=== PATIENT | female | born 1950 | race Caucasian/White ===

== ENCOUNTER 2016-09-08 17:18 | Emergency (ER) | payer MEDICARE, OTHER | END 2016-09-08 20:22 | disposition home or self-care (01) | LOC: ER 17:18 | DX: S30.0XXA Contusion of lower back and pelvis, initial encounter (principal); W07.XXXA Fall from chair, initial encounter; Y92.009 Unspecified place in unspecified non-institutional (private) residence as the place of occurrence of the external cause; J44.9 Chronic obstructive pulmonary disease, unspecified; E11.9 Type 2 diabetes mellitus without complications; I51.9 Heart disease, unspecified; Z86.73 Personal history of transient ischemic attack (TIA), and cerebral infarction without residual deficits | CPT/HCPCS: 72100; 72220; 99283 ==

== ENCOUNTER 2016-09-18 23:55 | Emergency (ER) | payer MEDICARE, OTHER ==
[2016-09-19 00:41] LABS: BASO % 0.2 % (0.1-1.2); EOS % 0.6 % (0.7-5.8); GRAN # 5.1 10_X3_uL (1.6-6.1); GRAN % 76.2 % (34.0-71.1); LYMPH % 14.4 % (19.3-51.7); MEAN CORPUSCULAR HEMOGLOBIN 28.9 pg (27.0-33.0); MEAN CORPUSCULAR VOLUME 93.2 fL (79-95); MONO # 0.6 10_X3_uL (0.2-0.9); MONO % 8.6 % (4.7-12.5); PLATELET COUNT 221 x10_3/uL (182-369); RED BLOOD COUNT 3.11 x10_6/uL (3.9-5.2); RED CELL DISTRIBUTION WIDTH 15.3 % (11.7-14.4); WHITE BLOOD COUNT 6.7 x10_3/uL (4.0-10.0)
[2016-09-19 00:58] LABS: CALCIUM 8.6 mg/dL (8.7-10.7); CREATININE 1.7 mg/dL (0.6-1.3); POTASSIUM 3.5 mmol/L (3.5-5.1)
== END 2016-09-19 03:48 | disposition home or self-care (01) ==
LOC: ER 23:55
PROVIDERS: General Practice
DX: R59.9 Enlarged lymph nodes, unspecified (principal); N28.9 Disorder of kidney and ureter, unspecified; D64.9 Anemia, unspecified; M54.2 Cervicalgia; E11.9 Type 2 diabetes mellitus without complications; I10 Essential (primary) hypertension; R00.2 Palpitations; Z79.899 Other long term (current) drug therapy
CPT/HCPCS: 70490; 99070; 99283-25